=== PATIENT | female | born 1965 | race Caucasian/White ===

== ENCOUNTER 2017-10-21 03:21 | Emergency (ER) | payer SELFPAY ==
[~2017-10-21] VITALS: Ht 165.1 cm; Wt 86.0 kg
[2017-10-21] MEDS ORDERED: CYCLOBENZAPRINE 10MG TABLET PO ONE (07:30)
[2017-10-21] MEDS ORDERED: ASPIRIN 81MG TABLET PO ONE (07:30)
[2017-10-21 08:13] LABS: CHLORIDE 108 mEq/L (98-107)
[2017-10-21 08:14] LABS: PROTHROMBIN TIME 10.8 sec (9.4-11.6)
[2017-10-21 08:23] LABS: EOSINOPHILS % 2.9 % (0.0-5.0); HEMATOCRIT. 37.9 % (36.0-48.0); LYMPHOCYTES % 26.7 % (20.0-50.0); MEAN CORPUSCULAR HEMOGLOBIN 29.5 pg (28.0-32.0); MONOCYTES % 7.7 % (2.0-8.0); NEUTROPHILS % 61.7 % (40.0-76.0); PLATELET 201 x1000/uL (130-400); RED BLOOD CELL COUNT 4.41 mill/uL (4.2-5.4); RED CELL DISTRIBUTION WIDTH 14.1 % (11.6-14.6)
[2017-10-21] MEDS ORDERED: KETOROLAC 60MG/2ML VIAL IM ONE (09:15)
[2017-10-21 11:30] VITALS: BP 128/69
== END 2017-10-21 12:54 | disposition home or self-care (01) ==
LOC: ER 03:21
DX: R07.9 Chest pain, unspecified (principal); M54.9 Dorsalgia, unspecified
CPT/HCPCS: 36415; 71045; 80053; 83880; 84484; 85025; 85610; 93005; 96372; 99285; J1885; Z7610

== ENCOUNTER 2022-12-01 07:20 | Emergency (ER) | payer OTHER ==
[~2022-12-01] VITALS: Ht 162.6 cm; Wt 97.0 kg
[2022-12-01 07:39] VITALS: BP 147/76; PULSE 89; RESP 19; TEMP 98; O2SAT 99
[2022-12-01 09:04] LABS: BASOPHILS % 2.1 % (0.0-2.0); EOSINOPHILS % 3.6 % (0.0-5.0); HEMATOCRIT. 38.7 % (36.0-48.0); HEMOGLOBIN. 13.3 g/dL (12.0-16.0); MEAN CORPUSCULAR HEMOGLOBIN 29.4 pg (28.0-32.0); MEAN CORPUSCULAR VOLUME 85.6 fL (81.0-99.0); MEAN PLATELET VOLUME 9.6 fl (7.4-10.4); MONOCYTES % 11.7 % (2.0-8.0); NEUTROPHILS % 50.6 % (40.0-76.0); PLATELET 257 x1000/uL (130-400); RED BLOOD CELL COUNT 4.52 mill/uL (4.2-5.4); RED CELL DISTRIBUTION WIDTH 14.3 % (11.6-14.6)
[2022-12-01 09:13] LABS: CHLORIDE 107 mEq/L (98-107)
[2022-12-01] MEDS ORDERED: MECL-217 MT (11:09)
[2022-12-01] MEDS ORDERED: MECLIZINE 12.5MG TABLET PO ONE (11:15)
[2022-12-01 11:24] LABS: CLARITY URINE CLOUDY (CLEAR); COLOR URINE YELLOW (YELLOW); KETONES URINE 1+ (NEGATIVE); LEUKOCYTE ESTERASE URINE 2+ (NEGATIVE); NITRITE URINE NEGATIVE (NEGATIVE); OCCULT BLOOD URINE NEGATIVE (NEGATIVE); PROTEIN URINE NEGATIVE (NEGATIVE); SPECIFIC GRAVITY URINE 1.021 (1.005-1.030); UROBILINOGEN URINE 0.2 E.U./dL (0.2-1.0)
== END 2022-12-01 11:46 | disposition home or self-care (01) ==
LOC: ER 07:50
DX: R42 Dizziness and giddiness (principal); R11.0 Nausea; E78.00 Pure hypercholesterolemia, unspecified; I10 Essential (primary) hypertension
CPT/HCPCS: 99285; 71045; 80053; 81003; 82962; 85025; 87086; 84484; 36415; 93005; J8597